=== PATIENT | female | born 1945 | race Caucasian/White ===

== ENCOUNTER 2022-04-12 12:47 | Emergency (ER) | payer BC, MEDICAID ==
[~2022-04-12] VITALS: Ht 170.2 cm; Wt 50.0 kg
[~2022-04-12 12:47] MED LIST: CEPH500C2 PO; INSU100I31 SQ; OMEP40CA21 PO; QUIN5TAB PO
[2022-04-12] MEDS ORDERED: insulin regular, human 10 units/0.1 ml syringe SQ ONE (13:25)
[2022-04-12] MEDS ORDERED: normal saline 1000ML IV soln IVB ONE (13:25)
[2022-04-12 13:57] LABS: ALANINE AMINOTRANSFERASE 23 U/L (12-78); ALBUMIN/GLOBULIN RATIO 0.9 (1.1-1.5); ALKALINE PHOSPHATASE 114 IU/L (46-116); ANION GAP 7 (8-16); ASPARTATE AMINO TRANSFERASE 15 U/L (10-37); BILIRUBIN,TOTAL 0.4 MG/DL (0.1-1.0); BLOOD UREA NITROGEN 22 MG/DL (7-18); BUN/CREATININE RATIO 34.9 (6.6-38.0); CALCIUM 8.8 MG/DL (8.5-10.1); CHLORIDE 103 MMOL/L (99-107); CREATININE 0.63 MG/DL (0.40-0.90); GLUCOSE 299 MG/DL (70-104); POTASSIUM 4.1 MMOL/L (3.5-5.1); SODIUM 138 MMOL/L (135-145); TOTAL CARBON DIOXIDE 27.6 MMOL/L (24-32); TOTAL PROTEIN 6.5 G/DL (6.4-8.2); eGFR > 90 ML/MIN
[2022-04-12 14:05] LABS: BASOPHILS # (AUTO) 0.1 X10'3 (0-0.2); BASOPHILS % (AUTO) 0.8 % (0-1); EOSINOPHILS # (AUTO) 0.1 X10'3 (0-0.9); HEMATOCRIT 39.6 % (35.0-45.0); LYMPHOCYTES # (AUTO) 1.7 X10'3 (1.1-4.8); LYMPHOCYTES % (AUTO) 15.1 % (21-51); MEAN CORPUSCULAR HEMOGLOBIN 27.2 PG (27.0-31.0); MEAN CORPUSCULAR HGB CONC 32.8 g/dL (33.0-36.5); MEAN CORPUSCULAR VOLUME 83.1 FL (78-98); MEAN PLATELET VOLUME 7.2 FL (7.4-10.4); MONOCYTES % (AUTO) 8.5 % (2-12); NEUTROPHILS # (AUTO) 8.3 X10'3 (1.8-7.7); NEUTROPHILS % (AUTO) 74.6 % (42-75); PLATELET COUNT 405 X10'3 (140-440); RED BLOOD COUNT 4.76 X10'6 (4.20-5.60); RED CELL DISTRIBUTION WIDTH 13.9 % (11.5-14.5); WHITE BLOOD COUNT 11.2 X10'3 (4.5-11.0)
[2022-04-12 14:07] LABS: LIPASE 55 U/L (73-393)
[2022-04-12] MEDS ORDERED: INSU100I31 SQ (14:31)
[2022-04-12 16:12] LABS: CLARITY,URINE CLOUDY (Clear); COLOR,URINE YELLOW (Yellow); GLUCOSE, URINE >=1000 mg/dl (Neg); KETONES,URINE TRACE mg/dl (Neg); LEUKOCYTE ESTERASE ,URINE TRACE (Neg); NITRITES, URINE POSITIVE (Neg); OCCULT BLOOD,URINE TRACE-INTACT (Neg); PH,URINE 5.5 (4.8-8.0); PROTEIN,URINE NEGATIVE (Neg)
[2022-04-12 16:18] LABS: UA COLLECTION TYPE CLN CATCH MIDSTREAM
[2022-04-12] MEDS ORDERED: SULF1TAB49 PO (16:22)
[2022-04-12] MEDS ORDERED: sulfamethoxazole/trimethoprim DS (800/160mg) tablet PO ONE (16:25)
[2022-04-12 16:43] LABS: SQUAMOUS EPITHELIAL CELL,UR MODERATE /LPF (FEW)
[2022-04-12 16:44] LABS: WBC,URINE TNTC /HPF (0-4)
[2022-04-12 16:45] LABS: BACTERIA,URINE 4+ /HPF (Neg)
[2022-04-12 16:48] VITALS: BP 111/74
[2022-04-12 16:49] LABS: RBC,URINE 0-2 /HPF (0-2)
[2022-04-12] MEDS ORDERED: NEED-136 SQ (17:02)
[2022-04-12] MEDS ORDERED: [UNRECOGNIZED DRUG - CODE] SQ (17:04)
[2022-04-12] MEDS ORDERED: [UNRECOGNIZED DRUG - CODE] SQ (17:04)
--- NOTE | 2022-04-12 17:14 | NUR ---
Pt given an understands d/c instructions. IV d/c'd, catheter was intact. Ambulatory with a steady gait. Pt is waiting for her friends to bring fresh clothes and give her a ride home.
== END 2022-04-12 18:02 | disposition home or self-care (01) ==
LOC: ER 12:48
DX: E11.65 Type 2 diabetes mellitus with hyperglycemia (principal); R07.0 Pain in throat; N39.0 Urinary tract infection, site not specified; Z90.710 Acquired absence of both cervix and uterus
CPT/HCPCS: 36415; 80053; 81001; 82948; 83690; 84484; 85025; 87077; 87088; 87186; 96372; 99284; J1815; J7030; 93005